=== PATIENT | female | born 1980 | race Two or more races ===

== ENCOUNTER 2020-10-19 14:45 | Emergency (ER) | payer OTHER ==
[2020-10-19] MEDS ORDERED: Sodium Chloride 0.9% 10 ML Syringe FLUSH PRN (14:57)
[2020-10-19] MEDS ORDERED: HYDROmorphone 0.5 MG/0.5 ML Syringe IVPUSH ONE (15:41)
[2020-10-19] MEDS ORDERED: Acetaminophen 325 MG Tab PO ONE (15:50)
[2020-10-19] MEDS ORDERED: Lidocaine 1% with EPINEPHrine 1:100,000 10 ML MDV INJECT ONE (16:03)
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
--- NOTE | 2020-10-20 07:38 | CR ---
Chest: Portable view of the chest was obtained. Comparison: No prior chest imaging is available. Heart size and mediastinum are within normal limits. Lungs are clear with no acute parenchymal change. No acute osseous abnormality is appreciated. Impression: 1. Nothing acute is identified on portable chest x-ray. Diagnostic code #1
--- NOTE | 2020-10-20 07:39 | CR ---
Left shoulder: 3 views of the left shoulder were obtained. Comparison: No prior left shoulder study is available. Humeral head appears somewhat elevated which most likely is positional. Glenohumeral joint and acromioclavicular joint are felt to be within normal limits. No discrete fracture or other abnormality is appreciated. Impression: 1. Elevated humeral head most likely positional. 2. Nothing acute is otherwise seen on left shoulder study. Diagnostic code #2
--- NOTE | 2020-10-20 07:39 | CR ---
Left elbow: 4 views of the left elbow were obtained. Comparison: No prior elbow study is available. Soft tissue defect is seen posteriorly within the elbow. Small radiopacities are seen within this soft tissue defect. Joint spaces are preserved. No acute fracture, dislocation or other bony abnormality is appreciated. Impression: 1. Soft tissue defect. Small radiopacities are seen within the soft tissue defect. 2. No acute osseous abnormality is appreciated. Diagnostic code #2
--- NOTE | 2020-10-20 07:49 | CR ---
Pelvis and left hip: AP view of the pelvis was obtained as well as AP and frog-leg lateral views of the left hip. Comparison: No prior study. Small radiopacities are seen overlying the right pelvis and right upper thigh. Joint spaces are preserved within both hips. Sacroiliac joints are normal. No acute fracture, dislocation or other bony abnormality is appreciated. Impression: 1. Radiopacities overlying the right pelvis and upper thigh presumably superficial. Please correlate. 2. No acute osseous abnormality is appreciated and AP pelvis or 2 view left hip exam. Diagnostic code #2
== END 2020-10-19 18:00 | disposition home or self-care (01) ==
LOC: JD.ED 14:45
DX: S51.012A Laceration without foreign body of left elbow, initial encounter (principal); S40.212A Abrasion of left shoulder, initial encounter; S50.312A Abrasion of left elbow, initial encounter; S70.212A Abrasion, left hip, initial encounter; V29.9XXA Motorcycle rider (driver) (passenger) injured in unspecified traffic accident, initial encounter
CPT/HCPCS: 12002; 36415; 71045; 73030; 73080; 73502; 80053; 83690; 84702; 85025; 99284; A9270; 99283